=== PATIENT | male | born 1980 ===

== ENCOUNTER 2016-11-02 16:56 | Emergency (ER) | payer OTHER ==
[2016-11-02 17:31] VITALS: BP 135/66; PULSE 90; RESP 17; TEMP 99.8; O2SAT 99
[2016-11-02] MEDS ORDERED: Oxycodone/Acetaminophen 5/325 mg Tab PO STA (17:59)
--- NOTE | 2016-11-02 18:03 | ED PDOC ---
HPI: Wound Care - HPI Time Seen by Provider: 11/02/16 17:48 Chief Complaint (Nursing): Wound Check Chief Complaint (Provider): abscess - Right axilla x 2 days History Per: Patient Exam Limitations: no limitations Quality Of Symptoms: Painful Severity: Severe Pain Scale Rating Of: 8 Additional Complaint(s): Pt reports abscess inthe right axilla x 2 days. no fever.chills. No medications at home for pain. Past Medical History Reviewed: Historical Data, Nursing Documentation, Vital Signs Vital Signs: Last Vital Signs Temp 99.8 F H 11/02/16 17:26 Pulse 90 11/02/16 17:26 Resp 17 11/02/16 17:26 BP 135/66 11/02/16 17:26 Pulse Ox 99 11/02/16 17:26 - Medical History PMH: No Chronic Diseases - Surgical History Surgical History: No Surg Hx - Family History Family History: States: Unknown Family Hx - Living Arrangements Living Arrangements: With Family - Social History Current smoker - smoking cessation education provided: No Alcohol: None Drugs: Denies - Home Medications Home Medications: Ambulatory Orders Medication Instructions Recorded Azithromycin 250 mg PO DAILY #6 tab 05/24/14 Amoxicillin/Clavulanate [Augmentin 1 tab PO BID #14 tab 03/21/15 875 MG-125 MG] Ibuprofen [Motrin] 600 mg PO Q6 PRN #15 tab 03/21/15 Sulfamethoxazole/Trimethoprim 1 tab PO BID #14 tab 03/21/15 [Bactrim DS 800 mg-160 mg] Cephalexin [cephalexin] 500 mg PO TID #21 cap 03/04/16 Ibuprofen [Motrin] 600 mg PO TID PRN #30 tab 03/04/16 Ibuprofen [Motrin Tab] 800 mg PO Q6H PRN #20 tab 11/02/16 Sulfamethoxazole/Trimethoprim 1 each PO BID #20 tablet 11/02/16 [Bactrim 400-80 mg Tablet] oxyCODONE/Acetaminophen [Percocet 1 ea PO Q6H PRN #10 tab 11/02/16 5/325 mg Tab] - Allergies Allergies/Adverse Reactions: Allergies Allergy/AdvReac Type Severity Reaction Status Date / Time No Known Allergies Allergy Verified 03/07/16 12:57 Review of Systems ROS Statement: Except As Marked, All Systems Reviewed And Found Negative Constitutional: Negative for: Fever, Chills Skin: Positive for: Other Physical Exam - Reviewed Nursing Documentation Reviewed: Yes Vital Signs Reviewed: Yes - Physical Exam Appears: Positive for: Well, Non-toxic, No Acute Distress Head Exam: Positive for: ATRAUMATIC, NORMAL INSPECTION, NORMOCEPHALIC Skin: Positive for: Warm. Negative for: Normal Color (Indurated abscess - Right axilla ) Eye Exam: Positive for: Normal appearance ENT: Positive for: Normal ENT Inspection Neck: Positive for: Normal, Painless ROM Cardiovascular/Chest: Positive for: Regular Rate, Rhythm Respiratory: Positive for: Normal Breath Sounds. Negative for: Accessory Muscle Use, Respiratory Distress Back: Positive for: Normal Inspection Extremity: Positive for: Normal ROM. Negative for: Tenderness Neurologic/Psych: Positive for: Alert, Oriented - ECG O2 Sat by Pulse Oximetry: 99 Disposition - Clinical Impression Clinical Impression: Abscess - Patient ED Disposition Is Patient to be Admitted: No Counseled Patient/Family Regarding: Diagnosis, Need For Followup, Rx Given - Disposition Referrals: [facility] [Outside] Disposition: Routine/Home Disposition Time: 18:05 Condition: GOOD Additional Instructions: Warm compresses. Follow-up in 2-3 days when area is soft. Prescriptions: Ibuprofen [Motrin Tab] 800 mg PO Q6H PRN #20 tab PRN Reason: Pain oxyCODONE/Acetaminophen [Percocet 5/325 mg Tab] 1 ea PO Q6H PRN #10 tab PRN Reason: Pain, Severe (8-10) Sulfamethoxazole/Trimethoprim [Bactrim 400-80 mg Tablet] 1 each PO BID #20 tablet Instructions: Abscess (ED) Forms: [employer] (Citizen Of [place])
[2016-11-02] MEDS ORDERED: Oxycodone/Acetaminophen 5/325 mg Tab ONE (18:15)
== END 2016-11-02 18:19 | disposition home or self-care (01) ==
LOC: H.ER 16:56
DX: L02.411 Cutaneous abscess of right axilla (principal)

== ENCOUNTER 2016-11-04 19:50 | Emergency (ER) | payer OTHER ==
[2016-11-04 19:57] VITALS: BP 109/55; PULSE 83; RESP 16; TEMP 98.4; O2SAT 100
--- NOTE | 2016-11-04 20:50 | ED PDOC ---
HPI: Wound Care - HPI Time Seen by Provider: 11/04/16 19:58 Chief Complaint (Nursing): Wound Check Chief Complaint (Provider): wound check History Per: Patient Additional Complaint(s): 36yo F in ED for eval abscess to right axilla seen in ED 3d ago was given abx and today noted increased swelling to lesion with increased pain no fever no chills. Past Medical History Reviewed: Historical Data, Nursing Documentation, Vital Signs Vital Signs: Last Vital Signs Temp 98.4 F 11/04/16 19:53 Pulse 83 11/04/16 19:53 Resp 16 11/04/16 19:53 BP 109/55 L 11/04/16 19:53 Pulse Ox 100 11/04/16 19:53 - Medical History PMH: No Chronic Diseases - Family History Family History: States: Unknown Family Hx - Home Medications Home Medications: Ambulatory Orders Medication Instructions Recorded Azithromycin 250 mg PO DAILY #6 tab 05/24/14 Amoxicillin/Clavulanate [Augmentin 1 tab PO BID #14 tab 03/21/15 875 MG-125 MG] Ibuprofen [Motrin] 600 mg PO Q6 PRN #15 tab 03/21/15 Sulfamethoxazole/Trimethoprim 1 tab PO BID #14 tab 03/21/15 [Bactrim DS 800 mg-160 mg] Cephalexin [cephalexin] 500 mg PO TID #21 cap 03/04/16 Ibuprofen [Motrin] 600 mg PO TID PRN #30 tab 03/04/16 Ibuprofen [Motrin Tab] 800 mg PO Q6H PRN #20 tab 11/02/16 Sulfamethoxazole/Trimethoprim 1 each PO BID #20 tablet 11/02/16 [Bactrim 400-80 mg Tablet] oxyCODONE/Acetaminophen [Percocet 1 ea PO Q6H PRN #10 tab 11/02/16 5/325 mg Tab] Cephalexin [cephalexin] 500 mg PO BID #20 cap 11/04/16 Tramadol HCl [Ultram] 50 mg PO Q6 #15 tab 11/04/16 - Allergies Allergies/Adverse Reactions: Allergies Allergy/AdvReac Type Severity Reaction Status Date / Time No Known Allergies Allergy Verified 11/02/16 18:07 Review of Systems ROS Statement: Except As Marked, All Systems Reviewed And Found Negative Constitutional: Negative for: Fever, Chills Skin: Positive for: Lesions Physical Exam - Reviewed Nursing Documentation Reviewed: Yes Vital Signs Reviewed: Yes - Physical Exam Appears: Positive for: Well, Non-toxic, No Acute Distress Skin: Positive for: Normal Color, Warm, DRY Cardiovascular/Chest: Positive for: Regular Rate, Rhythm Respiratory: Positive for: CNT, Normal Breath Sounds Extremity: Positive for: Other (right axilla: abscess noted central fluctaunce wiht surronding induration and mild erythema. no lymph node swelling. ) Neurologic/Psych: Positive for: Alert, Oriented - ECG O2 Sat by Pulse Oximetry: 100 Medical Decision Making Medical Decision Making: while in ER, pt pushed on his abscess by putting pressure and drainage lesion himself. In ED 1cm incision 1% lidocaine used to numb area not much drainage no packing left. abdominal pad used to collect pus Disposition - Clinical Impression Clinical Impression: Armpit abscess - Patient ED Disposition Is Patient to be Admitted: No Counseled Patient/Family Regarding: Studies Performed, Diagnosis, Need For Followup, Rx Given - Disposition Referrals: [facility] [Outside] [facility] [Outside] Disposition: Routine/Home Disposition Time: 20:58 Condition: STABLE Prescriptions: Cephalexin [cephalexin] 500 mg PO BID #20 cap Tramadol HCl [Ultram] 50 mg PO Q6 #15 tab Instructions: Abscess (ED) Forms: [facility] (Lebanese) Print Language: AFGHAN
== END 2016-11-04 21:14 | disposition home or self-care (01) ==
LOC: H.ER 19:50
DX: L02.91 Cutaneous abscess, unspecified (principal)